=== PATIENT | male | born 1955 | race Caucasian/White ===

== ENCOUNTER 2017-05-13 18:39 | Emergency (ER) | payer OTHER ==
[~2017-05-13] VITALS: Ht 172.7 cm; Wt 90.0 kg
[2017-05-13 18:55] VITALS: BP 155/85; PULSE 85; RESP 16; O2SAT 98
[2017-05-13 19:58] LABS: BASOPHILS % (AUTO) 0.1 % (0-3); EOSINOPHILS % (AUTO) 0.6 % (0-5); Mean Corpuscular Hemoglobin 29.4 pg (27.0-35.0); Mean Corpuscular Volume 85.8 fL (81-100); NEUTROPHILS % (AUTO) 89.6 % (40-74); Platelet Count 152 bil/L (150-400)
[2017-05-13 20:20] LABS: TROPONIN T < 0.010 ug/L (0.0-0.011)
[2017-05-13 20:31] LABS: Magnesium 1.5 mg/dL (1.6-2.6)
[2017-05-13 21:14] LABS: APPEARANCE,URINE CLEAR (CLEAR,HAZY); COLOR,URINE YELLOW (YELLOW); OCCULT BLOOD,URINE SMALL (NEGATIVE); UROBILINOGEN,URINE NORMAL (NORMAL)
--- NOTE | 2017-05-13 21:51 | ED.REPORT ---
HPI-General Illness Date of Service May 13, 2017 ED Provider: Dr. Levy 61 y/o male with a hx of DM and HTN presents to the ED complaining of sudden shaking about 5 hours ago. The pt had similar sx a year ago and was diagnosed with gram negative rods. He states "they said they got into the blood stream". He also complains of feeling cold. The pt denies other sx, including abdominal pain, dysuria, constipation, melena, non-productive cough and fever. Nursing Notes Stated Complaint: COLD AND SHAKING Chief Complaint: General Complaint Nursing Notes Reviewed: Yes Allergies: Coded Allergies: No Known Allergies (Unverified , 05/13/17) General Time Seen by MD: 21:50 Chief Complaint Other (shaking) Hx Obtained From: Patient Arrived By: Walk-in Sudden in Onset?: Yes Onset Occurred: 5 - 8 hours ago Symptom Duration: Since onset Severity: Current: No pain currently Severity: Maximum: No pain Recent Healthcare: No recent doctor visit Similar Sx Previous: Yes Past Medical History Past Medical History DM HTN Past Surgical History stent placement Smoking History Never Smoker Social History Other Social History: Good social support, Ambulatory Status Independent Review of Systems Full Review of Systems Constitutional: Reports: Chills, Denies: Fever Respiratory: Denies: Non-productive cough GI: Denies: Abdominal pain, Constipation, Melena Male: Denies Dysuria Neurologic: Reports: Shaking Complete sys rev & neg: except as marked. Physical Exam Vital Signs Vital Signs Date Time Temp Pulse Resp B/P Pulse Ox O2 Delivery O2 Flow Rate FiO2 05/14/17 01:51 36.9 88 18 138/76 98 Room Air 05/13/17 18:55 37.7 85 16 155/85 98 Room Air Initial VS: Reviewed Head / Eyes: Atraumatic, Normocephalic Neck: Supple, Non-tender, Full range of motion Extremities: Vascular intact, Neuro intact, No swelling, No tenderness Neurologic: Alert, Oriented, Nonfocal General/Constitutional: Awake, Alert, Cooperative Warm to touch Respiratory / Chest: Atraumatic, No respiratory distress, No wheezing Mild crackles at the left base Cardiovascular: Heart rate NL, Regular rhythm, Heart sounds NL, No gallop, No murmurs, No rubs Skin: Atraumatic, Color NL, No rash, Warm, Dry, Intact Interpretation & Diagnostics Lab Results Interpretation Result Diagram: 05/13/17193905/13/171939 Test 05/13/17 19:40 05/13/17 19:54 White Blood Count 8.5th/mm3 (3.8-10.1) Red Blood Count 4.22mil/mm3 (4.40-5.80) Hemoglobin 12.4g/dL (13.8-17.2) Hematocrit 36.2% (41.0-50.0) Mean Corpuscular Volume 85.8fL (81-100) Mean Corpuscular Hemoglobin 29.4pg (27.0-35.0) Mean Corpuscular Hemoglobin Concent 34.3% (32.0-37.0) Red Cell Distribution Width 13.0% (12.3-15.4) Platelet Count 152bil/L (150-400) Neutrophils (%) (Auto) 89.6% (40-74) Lymphocytes (%) (Auto) 5.6% (14-46) Monocytes (%) (Auto) 4.0% (4-12) Eosinophils (%) (Auto) 0.6% (0-5) Basophils (%) (Auto) 0.1% (0-3) Sodium Level 135mEq/L (134-144) Potassium Level 3.4mEq/L (3.5-5.2) Chloride Level 99mEq/L (97-108) Carbon Dioxide Level 21mmol/L (18-29) Blood Urea Nitrogen 14mg/dL (8-27) Creatinine 0.84mg/dL (0.76-1.27) Estimat Glomerular Filtration Rate 98mL/min (>59) Glucose Level 107mg/dL (60-99) Lactic Acid Level 1.5mmol/L (0.4-2.0) Calcium Level 8.7mg/dL (8.5-10.1) Magnesium Level 1.5mg/dL (1.6-2.6) Total Bilirubin 0.9mg/dL (0.0-1.2) Aspartate Amino Transf (AST/SGOT) 107U/L (0-50) Alanine Aminotransferase (ALT/SGPT) 83U/L (0-44) Alkaline Phosphatase 92U/L (25-160) Troponin T < 0.010ug/L (0.0-0.011) Total Protein 6.2g/dL (6.4-8.4) Albumin 3.6g/dL (3.4-5.0) Urine Color Yellow (YELLOW) Urine Appearance Clear (CLEAR,HAZY) Urine pH 5.0 (5.0-8.0) Urine Specific [place] 1.030 (1.003-1.035) Urine Protein Negativemg/dL (NEG,TRACE) Urine Glucose (UA) Negativemg/dL (NEGATIVE) Urine Ketones Negativemg/dL (NEGATIVE) Urine Occult Blood Small (NEGATIVE) Urine Nitrite Negative (NEGATIVE) Urine Bilirubin Negative (NEGATIVE) Urine Urobilinogen Normalmg/dL (NORMAL) Urine Leukocyte Esterase Negative (NEGATIVE) Urine RBC 0-2/hpf (0-2) Urine WBC 0-5/hpf (0-5) Urine Epithelial Cells Few/hpf (NONE-MOD) Urine Crystals None seen (NONE SEEN) Urine Bacteria Few/hpf (NONE-FEW) Urine Hyaline Casts None/lpf (NONE) Urine Granular Casts None seen (NONE SEEN) Urine Waxy Casts None seen (NONE SEEN) Urine Red Blood Cell Casts None seen (NONE SEEN) Urine White Blood Cell Casts None seen (NONE SEEN) Urine Mucus None seen (None Seen) Urine Trichomonas None seen (NONE SEEN) Urine Yeast None (NONE SEEN) Urinalysis Comment None Urine Culture Reflexed Not indicated Hold Urine Received (Received) ECG Interpretation ECG Interpretation: Normal sinus rhythm. Rate 93. Time: 20:25 Interpreted by: ED physician X-Ray Chest Interpretation Chest Xray Interpretation: Normal View: Portable, 1 view Interpretation / Wet Read by: Wet read ED physician CT Abd / Pelvis Interpretation Impression: no CT findings to explain the patient's clinical symtpoms. Signed by Dr. Gilbert Chadwick 05/14/17 Study type: Abdominal CT IV contrast Interpretation / Wet Read by: Interpret - Radiologist Re-Eval/Medical Decision Med Decision/Clinical Course 61-year-old presents with chills and actual fever here, but no other indication of source and no other indication of severe illness. Vitals been stable. Urine is negative. X-ray negative. Exam is benign. He has no abdominal pain. Because of his prior diverticular source by history, CT abdomen pelvis was obtained and was noncontributory. He remains stable and is discharged now for close follow-up if his symptoms progress. Tylenol or ibuprofen as needed for fever. Prompt return if worsening or if any focal symptoms occur. Time of Eval: 01:40 Re-Evaluation/Progress Note: Rechecked pt. Discussed lab results, imaging results, diagnosis and plan to discharge. Pt understands and agrees with the plan. F/U instructions and RTER warning given. All questions addressed. Discharge & Departure Primary Impression: Chills with fever Disposition: Home Discharge Condition All VS Reviewed: Yes Condition: Stable Patient Instructions: Fever in Adults (ED) Additional Instructions: You had a documented fever here, and there chills to suggest infection. However , we have not identified a specific source. Her vital signs have been stable as long as you been here, with no rapid heartbeat, no low blood pressure, and no other indications of serious complications of infection. Viral infections can present in just this way, and do not require therapy. On the other hand, bacterial infections can begin this way, as you previously experienced. This requires close follow-up. I do not believe it is necessary to be in the hospital tonight. I think he need a recheck tomorrow for still having fever and chills. We have cultures of urine and blood now, and if these become positive for bacteria, we will contact you to return for admission. Return here promptly if he develop any worsening symptoms, dizziness, weakness, worsening chills, or any other new symptoms of concern. Referrals: NOPCP (PCP) Scribe Attestation Portions of this note were transcribed by Chad Sheehan. I, Dr. Levy, personally performed the history, physical exam and medical decision-making;I reviewed and confirmed the accuracy of the information in the transcribed note. Signed by Magdalena Billy. 05/14/17 02:44 Romero Levy MD May 13, 2017 21:51 Chad Sheehan May 13, 2017 22:03
[2017-05-13] MEDS ORDERED: 0.9% Sodium Chloride 1,000 ML IV ONE (22:05)
[2017-05-14 01:51] VITALS: BP 138/76; PULSE 88; RESP 18; O2SAT 98
--- NOTE | 2017-05-14 07:59 | DRSVH ---
PROCEDURE: X-RAY CHEST, TWO VIEWS ([id number]) INDICATIONS: fever, chills TECHNIQUE: 2 views of the chest were acquired. COMPARISON: None. FINDINGS: Surgical changes and devices: None. Lungs and pleura: No pleural effusions or pneumothorax. Lungs are clear. Mediastinum: Mediastinal contours are normal. Heart size is normal. Bones and chest wall: No suspicious bony abnormalities. Soft tissues appear unremarkable. IMPRESSION: No acute cardiopulmonary abnormality. Source of fever not seen. Dictated by: Ronald Grider M.D. on 05/14/2017 at 7:56 Approved by: Ronald Grider M.D. on 05/14/2017 at 7:57
--- NOTE | 2017-05-14 11:28 | DRSVH ---
PROCEDURE: CT ABDOMEN AND PELVIS WITH CONTRAST ([id number]) INDICATIONS: sepsis prior abdo source TECHNIQUE: After the administration of intravenous contrast, 5 mm thick sections acquired from the diaphragm to the symphysis. 5 mm coronal and sagittal reformats were acquired. For radiation dose reduction, the following was used: automated exposure control, adjustment of mA and/or kV according to patient siz e. COMPARISON: None. FINDINGS: Image quality: Excellent. ABDOMEN: Lung bases: Lung bases are clear. Heart size is normal. Solid organs: Liver and spleen are normal in size. 26 mm right hepatic cyst. Hepatic steatosis is present. Gallbladder has been removed. Biliary system is non dilated. Pancreas enhances normally. No adrenal nodules. Kidneys are mildly atrophic. Peripelvic cysts are present on the left. Exophy tic right renal cyst. Peritoneum and bowel: Bowel loops demonstrate normal wall thickness and caliber. No free fluid or a ir. 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 There is what appears to be a stent within the afferent limb/residual pancreas noted. Nodes and vessels: No retroperitoneal or mesenteric adenopathy by size criteria. Aorta and inferior vena cava are normal in size. Miscellaneous: No ventral hernias. PELVIS: Genitourinary: Bladder wall thickness is normal. Prostate gland is enlarged. Miscellaneous: No inguinal hernias or adenopathy. Bones: No suspicious bony lesions. No vertebral body compression fractures. IMPRESSION: 1. No visualized cause of pain. 2. 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 3. Hepatic and renal cysts. Dictated by: Molly Mccauley M.D. on 05/14/2017 at 10:29 Approved by: Molly Mccauley M.D. on 05/14/2017 at 11:26
== END 2017-05-14 01:47 | disposition home or self-care (01) ==
LOC: SED 18:39
DX: R50.9 Fever, unspecified (principal); E11.9 Type 2 diabetes mellitus without complications; I10 Essential (primary) hypertension; Z95.818 Presence of other cardiac implants and grafts; Z85.07 Personal history of malignant neoplasm of pancreas
CPT/HCPCS: 36415; 71020; 74177; 80053; 81000; 83605; 83735; 84484; 85025; 87040; 87077; 87086; 87088; 87186; 93005; 96360; 99285; J7030; Q9967